=== PATIENT | male | born 1990 | race African-American/Black ===

== ENCOUNTER 2017-03-05 19:37 | Emergency (ER) | payer SELFPAY ==
[~2017-03-05] VITALS: Ht 167.6 cm; Wt 48.1 kg
[2017-03-05] MEDS ORDERED: IBUPROFEN600 MG ORAL (21:21)
[2017-03-05 21:30] VITALS: BP 115/66
--- NOTE | 2017-03-05 21:42 | Emergency Room Report ---
History of Present Illness General Chief Complaint: Lower Extremity Injury Source: Patient Present Illness HPI 26-year-old male no significant past medical history presenting with left foot pain. Patient states that the tire around over it today. Did not fall did not hit his head. Now complaining of severe foot pain no other complaints Allergies: Coded Allergies: No Known Allergies (Unverified , 03/05/17) Patient History Past Medical History: see triage record Past Surgical History: none Pertinent Family History: none Reviewed Nursing Documentation: PMH: Agreed, PSxH: Agreed Nursing Documentation-PMH Past Medical History: No Stated History Review of Systems All Other Systems: negative except mentioned in HPI Physical Exam Vital Signs Date Time Temp Pulse Resp B/P (MAP) Pulse Ox O2 Delivery O2 Flow Rate FiO2 03/05/17 19:49 98.1 61 18 115/66 98 Room Air Sp02 EP Interpretation: reviewed, normal General Appearance: alert, GCS 15, non-toxic, mild distress Head: normocephalic, atraumatic Eyes: bilateral eye normal inspection, bilateral eye PERRL, bilateral eye EOMI ENT: normal ENT inspection, normal pharynx, normal voice, moist mucus membranes Neck: normal inspection, full range of motion, supple Respiratory: normal inspection, lungs clear, normal breath sounds, no respiratory distress, no retraction, no wheezing, speaking full sentences, chest symmetrical Cardiovascular #1: normal inspection, regular rate, rhythm, no edema, normal capillary refill Cardiovascular #2: 2+ radial (R), 2+ radial (L) Gastrointestinal: normal inspection, non tender, soft, non-distended, no guarding Genitourinary: no CVA tenderness Musculoskeletal: other - Left foot with mild edema and swelling, tender to palpation mid foot region, no ecchymosis no gross bony deformities, has full range of motion Neurologic: normal inspection, alert, oriented x3, responsive, motor strength/ tone normal, sensory intact, normal gait, speech normal Psychiatric: normal inspection, judgement/insight normal, memory normal Skin: normal inspection, normal color, no rash, warm/dry, well hydrated, normal turgor Procedures Splinting Splinting : Consent: Verbal Location: L foot Pre-Made Type: hard sole shoe Splint: hard sole shoe Pre-Proc Neuro Vasc Exam: normal Post-Proc Neuro Vasc Exam: normal Patient Tolerated: Well Complications: None Medical Decision Making Diagnostic Impression: Primary Impression: Left foot pain Additional Impression: Contusion ER Course 26-year-old male with left foot pain DDX: Contusion vs. fracture Plan: Pain control with motrin XR ER course: Patient reports improvement of pain with motrin. XR reveals soft tissue swelling without fracture Hard sole shoe applied, patient discharged with crutches Disposition: Patient is to be discharged home with a prescription of motrin. Patient educated to rest, ice, and elevate extremity and to avoid vigorous activity. Strict precautions discussed with patient on when to return to the emergency room including increased redness or swelling joints, increased pain/swelling of extremity, fever or chills, which could indicate severe illness. Patient is to follow up with their primary care doctor within 5 days. Patient also instructed to follow up with an orthopedic doctor if continuing to have mild/moderate pain as he may need further outpatient imaging. Patient agrees with plan. Please note that this Emergency Department Report was dictated using [employer] technology software, occasionally this can lead to erroneous entry secondary to interpretation by the dictation equipment. Xray ordered: Left foot 3 view Indication: Pain EP Interpretation: Yes Interpretation: No dislocation, no soft tissue swelling, no fractures Impression: No acute disease Electronically signed by Joaquin Rodríguez MD Xray: Left ankle 3 view Indication: Pain EP Interpretation: Yes Interpretation: No dislocation, no soft tissue swelling, no fractures Impression: No acute disease Electronically signed by Joaquin Rodríguez MD Last Vital Signs Date Time Temp Pulse Resp B/P (MAP) Pulse Ox O2 Delivery O2 Flow Rate FiO2 03/05/17 19:49 98.1 61 18 115/66 98 Room Air Disposition: HOME, SELF-CARE Condition: Improved Scripts Ibuprofen* (MOTRIN*) 600 Mg Tablet 600 MG ORAL Q8H Y for For Pain, #30 TAB 0 Refills Prov: Joaquin Rodríguez M.D. 03/05/17 Patient Instructions: Foot Contusion Additional Instructions: PLEASE FOLLOW UP WITH YOUR PRIMARY CARE DOCTOR IN 1 WEEK PLEASE REST, ICE, ELEVATE YOUR FOOT AVOID VIGOROUS ACTIVITY PLEASE FOLLOW UP WITH AN ORTHOPEDIC SURGEON IN 1 WEEK IF NOT BETTER. Joaquin Rodríguez M.D. Mar 05, 2017 21:42
--- NOTE | 2017-03-06 09:10 | Diagnostic Imaging Report ---
Indication: Pain Technique: 3 views left foot Comparison: none Findings: No acute fractures. No dislocations. Corticated ossific density projects anterior to the anterior superior aspect of the calcaneus on the lateral view, probably an accessory ossicle, sequela of old avulsion injury also a possibility. Acute fracture much less likely although not completely excludable The joint spaces are preserved Impression: Doubt acute process. Calcaneal fracture of indeterminate acuity not completely excludable, however. Correlate with clinical findings This agrees with the preliminary interpretation [facility].
--- NOTE | 2017-03-06 09:15 | Diagnostic Imaging Report ---
Indication: Reason For Exam: PAIN Technique: 3 views left foot Comparison: none Findings: On the lateral view, ossific density projects anterior to the anterior superior calcaneus, better seen on ankle radiograph performed same time. No other evidence of acute fracture or dislocation demonstrated. The joint spaces are preserved Impression: Doubt acute bony trauma Cannot rule out calcaneal fracture of indeterminate age-see separate ankle radiograph report
== END 2017-03-05 21:30 | disposition home or self-care (01) ==
LOC: EMR 21:18
DX: S90.32XA Contusion of left foot, initial encounter (principal); X58.XXXA Exposure to other specified factors, initial encounter; Y92.9 Unspecified place or not applicable
CPT/HCPCS: 99284